=== PATIENT | female | born 1985 | race Caucasian/White ===

== ENCOUNTER 2018-12-04 23:57 | Emergency (ER) | payer BC ==
[~2018-12-04] VITALS: Ht 152.4 cm; Wt 52.2 kg
--- NOTE | 2018-12-05 00:05 | NUR ---
PT BIBSELF FROM HOME C/O MIGRAINE X3 DAYS. +N/V,+PHOTOPHOBIA,-BLURRY VISION HX OF MIGARINES BUT WORSE THAN BEFORE. PT AOX4. RESP EVEN AND UNLABORED. PT ON MONITOR IN BED 9. WILL CONTINUE TO MONITOR.
--- NOTE | 2018-12-05 00:15 | NUR ---
URINE COLLECTED AND SENT TO LAB
--- NOTE | 2018-12-05 00:31 | NUR ---
Angela esquivel in [facility] - 12/05/18 at 0032 by MG GREGORY AT [facility] FOR [facility]
--- NOTE | 2018-12-05 00:32 | NUR ---
CHATO JENKINS AT BEDSIDE FOR EVAL
[2018-12-05] MEDS ORDERED: KETOROLAC TROMETHAMINE INJ 30 MG/ML VIAL ONE (00:55)
[2018-12-05] MEDS ORDERED: ONDANSETRON HCL/PF 4 MG/2 ML VIAL ONE (00:56)
[2018-12-05] MEDS ORDERED: PROCHLORPERAZINE EDISYLATE 10 MG/2 ML VIAL ONE (00:56)
[2018-12-05] MEDS ORDERED: KETOROLAC TROMETHAMINE INJ 30 MG/ML VIAL IV ONE (01:00)
[2018-12-05] MEDS ORDERED: PROCHLORPERAZINE EDISYLATE 10 MG/2 ML VIAL IVP ONE (01:00)
[2018-12-05] MEDS ORDERED: ONDANSETRON HCL/PF 4 MG/2 ML VIAL IV ONE (01:00)
[2018-12-05 01:50] VITALS: BP 99/59
--- NOTE | 2018-12-05 01:50 | NUR ---
Patient is resting comfortably in bed with eyes closed. Easily aroused. VSS
--- NOTE | 2018-12-05 02:17 | NUR ---
IV removed. Catheter intact and site benign. Pressure and 4x4 applied to site. No bleeding noted.Patient discharged to home in stable condition. Written and verbal after care instructions given. Patient verbalizes understanding of instruction. PT AMBULATORY WITH STEADY GAIT IN STABLE CONDITION.
== END 2018-12-05 02:18 | disposition home or self-care (01) ==
LOC: ER 23:57
DX: G43.909 Migraine, unspecified, not intractable, without status migrainosus (principal)
CPT/HCPCS: 96374; 96375; 99283; A4606 ×2; J0780; J1885; J2405; Z7610 ×2